=== PATIENT | female | born 1995 | race Caucasian/White ===

== ENCOUNTER → 2016-11-26 | Outpatient (CLI) | payer MEDICAID ==
[~2016-11-26] MED LIST: CELEXA 20MG TAB20 MG PO; DEPRESSION MED; IRON TABLETS325 MG PO; MOTRIN 400MG.400 MG PO; NAPROSYN 500MG500 MG PO; NICOTINE21 MG/24 H TD; PREDNISONE 20MG20 MG PO; PRENATAL PLUS1 TA1 PO; PRILOSEC20 M1 PO; ROBAXIN-750750 MG PO; SEPTRA DS 800 M1 TAB PO; ZANTAC 150150 MG PO
== END ==
LOC: LAB 11:41
DX: Z34.00 Encounter for supervision of normal first pregnancy, unspecified trimester (principal)